=== PATIENT | female | born 2000 | race Caucasian/White ===

== ENCOUNTER 2020-12-04 09:13 | Emergency (ER) | payer MEDICAID, SELFPAY ==
--- NOTE | ~2020-12-04 | XR_ITS ---
EXAMINATION: XR chest 1V portable DATE: 12/04/2020 09:47 INDICATION: Cough. Nausea and vomiting. TECHNIQUE: A single frontal view of the chest was obtained. COMPARISON: Chest 2 views 12/19/2010, CT abdomen and pelvis 07/17/2018 FINDINGS: The chest demonstrates clear lungs without pneumonia, pleural effusion, or pneumothorax. Th e heart size is normal. IMPRESSION: 1. No acute cardiopulmonary disease. Reviewed, dictated and finalized at location A.
[2020-12-04 09:19] VITALS: BP 132/76; PULSE 100; RESP 18; TEMP 36.8; O2SAT 98
[2020-12-04] MEDS: SODIUM CHLORIDE 0.9% IV 1,000 ML 999 ML IV CONT (09:59)
--- NOTE | 2020-12-04 10:50 | ED.FEVER ---
HPI - Fever General Chief Complaint: Fever Stated Complaint: 5 mos preg - vomiting Time Seen by Provider: 12/04/20 09:16 History of Present Illness HPI Narrative: Patient is a 20-year-old female who is 5 months along in her . G1, P0. She presents ER with fever of 100.8 ?F last night. Associated with 2 to 3 days of sinus congestion with sore throat and productive cough. No exertional dyspnea or chest pain. No known sick or Covid positive contacts. Denies any urinary symptoms or leakage of fluid/vaginal bleeding. Patient her mother just want to be safe given that she is . Patient does experience posttussive emesis but she is not having nausea or vomiting or difficulty eating. Related Data Allergies Allergy/AdvReac Type Severity Reaction Status Date / Time No Known Allergies Allergy Unverified 12/04/20 09:25 Review of Systems Review of Systems: All systems reviewed & are unremarkable except as noted in HPI and below Constitutional: Constitutional: Denies chills, Denies fatigue and Reports fever(s) ENT: Reports nasal congestion and Reports sore throat Cardiovascular: Cardiovascular: Denies chest pain, Denies rapid heart rate and Denies radiating jaw, neck or arm pain Respiratory: Respiratory: Reports cough, Denies dyspnea and Denies wheezing Gastrointestinal: Gastrointestinal: Denies abdominal pain, Denies nausea and Denies vomiting Genitourinary: Genitourinary: Denies abnormal vaginal bleeding, Denies nocturia, Denies dysuria and Denies vaginal discharge PMFSH Past Medical History Medical History (Updated 12/04/20 @ 10:55 by Ward Faye MD) Healthy female adult Surgical History Surgical History (Updated 12/04/20 @ 10:53 by Ward Faye MD) No history of previous surgery Social History Social History (Updated 12/04/20 @ 10:53 by Ward Faye MD) Tobacco type: e-cigarettes/vaping Exam Narrative: Exam Narrative: GENERAL: Well-appearing, well-nourished, and in no acute distress. HEAD: Normocephalic, atraumatic. ENT: Mucous membranes moist. Normal-appearing posterior oropharynx with tonsillar hypertrophy/exudate, uvula midline and nonedematous. CHEST: Clear to auscultation. No respiratory distress. HEART: Regular rate and rhythm. Normal peripheral pulses. ABDOMEN: Soft, nontender, nondistended. NEURO: Alert and oriented x3. PSYCH: Normal mood and affect. Course [employer] Physician Supervision Patient hydrated. No evidence of pneumonia on chest x-ray. Patient swabbed for Covid and educated on isolation measures. Patient will be started on Mucinex DM to help break up her congestion. Vital Signs Vital signs: Vital Signs Temperature 98.2 F 12/04/20 09:19 Pulse Rate 100 12/04/20 09:19 Respiratory Rate 18 12/04/20 09:19 Blood Pressure 132/76 12/04/20 09:19 Pulse Oximetry 98 12/04/20 09:19 Temperature 98.2 F 12/04/20 09:19 Pulse Rate 100 12/04/20 09:19 Respiratory Rate 18 12/04/20 09:19 Blood Pressure 132/76 12/04/20 09:19 Pulse Oximetry 98 12/04/20 09:19 MDM - Fever Lab Data Labs: Lab Results 12/04/20 Range/Units 10:35 SARS-CoV-2 RNA (RT-PCR) Pending Discharge Plan Discharge Clinical Impression: Acute viral syndrome, Person under investigation for COVID-19 Patient Disposition: Home, Self-Care Condition: Stable Instructions: Viral Syndrome (ED) Additional Instructions: Your swab for Covid. You must self isolate until you receive a negative test, or if you are positive cleared by the health department. Take Mucinex DM to help with breaking up your mucus. Take Tylenol for fever. Make sure to stay hydrated. Prescriptions: New dextromethorphan-guaifenesin [Mucinex DM] 60-1,200 mg tablet extended release 12 hr 1 tablet PO Q12H Qty: 14 RF: 0 Follow-up/Referrals: Marc,Sayra Galicia MD [Primary Care Provider] - 1 Week
[2020-12-04 11:10] VITALS: BP 105/69; PULSE 95; RESP 17; O2SAT 100
[2020-12-04 17:02] LABS: SARS-CoV-2 RNA PCR Positive
== END 2020-12-04 11:10 | disposition home or self-care (01) ==
PROVIDERS: Emergency Provider Emergency Medicine; PCP Family Medicine
DX: O98.512 Other viral diseases complicating pregnancy, second trimester (principal); U07.1 COVID-19; Z3A.00 Weeks of gestation of pregnancy not specified; O99.332 Smoking (tobacco) complicating pregnancy, second trimester; F17.290 Nicotine dependence, other tobacco product, uncomplicated
CPT/HCPCS: 71045; 99283; C9803; J7030; U0003; U0005

== ENCOUNTER 2021-04-14 13:52 | Outpatient (CLI) | payer OTHER, SELFPAY ==
[2021-04-14] VITALS (7 sets, daily range): BP systolic 131–154; BP diastolic 80–106; PULSE 73–106
[2021-04-14 14:36] LABS: Basophils Percent Auto 0.4 % (0.2-1.2); Eosinophils Absolute Auto 0.1 K/mm3 (0-0.3); Eosinophils Percent Auto 0.7 % (0-4.4); Hematocrit 38.2 % (37.0-47.0); Immature Granulocyte Absolute 0.12 K/mm3 (0.00-0.031); Immature Granulocyte Percent A 1.1 % (0-0.5); Lymphocytes Absolute Auto 1.49 K/mm3 (0.9-3.2); Lymphocytes Percent Auto 13.2 % (18.3-44.2); Mean Corpuscular HGB Conc 31.4 g/dl (32-36); Mean Corpuscular Volume 82.9 fl (80-100); Mean Platelet Volume 10.9 fl (7.4-10.4); Monocytes Absolute Auto 0.7 K/mm3 (0.1-0.6); Neutrophils Absolute Auto 8.9 K/mm3 (1.3-6.7); Neutrophils Percent Auto 78.6 % (45.5-73.1); Platelet Count Result 201 k/mm3 (150-375); Red Blood Count 4.61 M/mm3 (4.2-5.4); Red Cell Distribution Width 14.8 % (11.5-14.5); White Blood Count 11.3 K/mm3 (4.5-10.0)
[2021-04-14 14:38] LABS: Add Urine Microscopic? NO; Appearance Urine Clear (Clear); Bilirubin Urine Negative (Negative); Blood Urine Negative (Negative); Color Urine Colorless (Yellow); Glucose Urine UA Negative (Negative); Ketones Urine Negative (Negative); Leukocyte Esterase Ur Negative LEU/UL (NEGATIVE); Nitrate Urine Negative (Negative); Protein Urine Negative (Negative); Urobilinogen Urine Negative mg/dL (<2.0)
[2021-04-14 14:44] LABS: Alanine Aminotransferase 15 U/L (4-35); Albumin Level 3.8 g/dL (3.5-5.1); Alkaline Phosphatase 217 U/L (38-126); Anion Gap 8 mmol/L (8-16); Aspartate Amino Transferase 23 U/L (14-36); Bilirubin,Total 0.4 mg/dL (0.2-1.3); Blood Urea Nitrogen 4 mg/dL (7-17); Calcium 8.9 mg/dL (8.4-10.2); Carbon Dioxide 20 mmol/L (22-30); Chloride 106 mmol/L (98-107); Estimated Glomerular Filt Rate > 60; Glucose 73 mg/dL (65-110); Potassium 3.7 mmol/L (3.4-5.0); Sodium 134 mmol/L (137-145); Uric Acid 4.9 mg/dL (2.5-7.5)
[2021-04-14 14:47] LABS: Creatinine Urine 15.5 mg/dL; Total Protein Urine Random 14 mg/dL
[2021-04-14 15:22] LABS: Specific Grav Ur 1.002 (1.001-1.035)
== END 2021-04-14 15:50 | disposition home or self-care (01) ==
LOC: ANHOBOP 13:58 → ANHOBPP 13:59
PROVIDERS: Visit Provider Student in an Organized Health Care Education/Training Program
DX: O13.3 Gestational [pregnancy-induced] hypertension without significant proteinuria, third trimester (principal); Z3A.36 36 weeks gestation of pregnancy
CPT/HCPCS: 36415; 59025; 80053; 81003; 82570; 84156; 84550; 85025; 87086; 99199

== ENCOUNTER 2021-04-15 16:49 | Outpatient (CLI) | payer OTHER, SELFPAY ==
[2021-04-15 17:26] VITALS: BMI 31.1
[2021-04-15 17:39] LABS: Collection Time Urine 24 HOURS
[2021-04-15 17:48] LABS: Creatinine Urine 62.3 mg/dL; Patient Weight 192 Lbs; Total Protein Urine Random 11 mg/dL
[2021-04-15 18:01] LABS: Creatinine Clearance Urine 200.6 ml/min (75-125); Total Protein Urine 24 Hr 231 mg/24hr (28-141); Total Volume 24 Hour Urine 2100 ml
== END 2021-04-15 16:50 | disposition home or self-care (01) ==
LOC: ANHOBOP 16:51
PROVIDERS: Visit Provider Student in an Organized Health Care Education/Training Program
DX: O13.9 Gestational [pregnancy-induced] hypertension without significant proteinuria, unspecified trimester (principal); Z3A.00 Weeks of gestation of pregnancy not specified
CPT/HCPCS: 81050; 82575; 84156

== ENCOUNTER 2023-09-21 18:49 | Emergency (ER) | payer OTHER, SELFPAY ==
--- NOTE | 2023-09-21 19:02 | ED.URI ---
HPI - URI/Sore Throat General Chief Complaint: Upper Respiratory Infection Stated Complaint: flu like symptoms Time Seen by Provider: 09/21/23 19:15 Source: patient Mode of arrival: ambulatory Limitations: no limitations History of Present Illness HPI Narrative: Tori is a 22-year-old female patient presenting to the clinic today with complaints of flu-like symptoms. She reports she has had a fever, headache, body aches, chills, nasal congestion and a cough since yesterday. Fevers high as 102. Denies any chest pain or shortness of breath. MD elicited complaint: fever, cough, rhinorrhea, nasal congestion and other (Headache) Related Data Allergies Allergy/AdvReac Type Severity Reaction Status Date / Time No Known Allergies Allergy Unverified 09/21/23 19:05 Review of Systems Review of Systems: Pertinent positives per HPI. Patient denies any rash, visual changes, dizziness, shortness of breath, chest pain, palpitations, nausea, vomiting, diarrhea, constipation, abdominal pain, or any urinary issues. [facility] Past Medical History Medical History (Updated 09/21/23 @ 19:32 by Percy Delaney APRN) Healthy female adult Surgical History Surgical History (Updated 12/04/20 @ 10:53 by Ward Faye MD) No history of previous surgery Social History Social History (Updated 12/04/20 @ 10:53 by Ward Faye MD) Tobacco type: e-cigarettes/vaping Comments At the time of my signature, I reviewed and agree with the nursing past medical, surgical, social, and family history. There is no relevant family history pertinent to the patient complaint. Exam Narrative: General: Well-developed, well nourished, in no apparent distress Head: Normocephalic, atraumatic Eyes: Pupils equally round and reactive to light bilaterally, EOM intact, sclera and conjunctive clear, no discharge, lids normal Ears: TMs intact and congested, ear canals clear, no drainage, grossly hearing normal. Nose: Nares patent, clear nasal discharge, no inflammation, no sinus tenderness. Mouth: Oral pharynx red without lesions or masses, good dentition, MMM. Neck: Supple, trachea midline, no enlargement of anterior or posterior cervical nodes, no thyroid masses or goiter palpable. Cardio: Regular rate and rhythm, s1 and s2 normal, no murmur appreciated. Resp: Clear to auscultation bilaterally, no rhonchi, rales, wheezing or rubs Course Course Emergency Course: Portions of this record may have been created with voice recognition software. Level of Care: Express Care Visit Vital Signs Vital signs: Vital signs reviewed MDM - URI/Sore Throat MDM Narrative Medical decision making narrative: At the time of visit patient is resting comfortably on the exam table. Patient appears to be nontoxic. COVID testing was negative. Influenza test was positive for influenza A. Supportive measures were discussed with the patient and they voiced understanding discharge instructions and agrees to treatment plan. Return precautions reviewed Differential Diagnosis Differential diagnosis: Likely upper respiratory infection, otitis media, sinusitis, viral infection, bronchitis, influenza, pharyngitis and other (COVID) Discharge Plan Discharge Clinical Impression: Influenza A Patient Disposition: Home, Self-Care Condition: Stable Instructions: Antibiotic Form, Influenza (ED) Additional Instructions: COVID testing was negative. Influenza test was positive for influenza A. Take prescription medications only as prescribed-Tamiflu Increase fluids and stay well hydrated Tylenol/motrin for pain/fever Flonase and OTC antihistamines as directed Vicks vapor rub to open sinuses Sinus rinses for congestion Cepacol spray, cough drops, throat lozenges, warm tea with honey/lemon, gargle salt water to soothe throat BRAT diet for diarrhea Clear liquids x 24 hours then advance as tolerated for nausea/vomiting Go to the ED if y
[2023-09-21 19:04] VITALS: BP 127/80; PULSE 107; RESP 18; TEMP 37.3; O2SAT 100
== END 2023-09-21 19:44 | disposition home or self-care (01) ==
PROVIDERS: Emergency Provider Nurse Practitioner Family
DX: J10.1 Influenza due to other identified influenza virus with other respiratory manifestations (principal); Z20.822 Contact with and (suspected) exposure to COVID-19
CPT/HCPCS: 87426; 87804; 99213; C9803; G0463

== ENCOUNTER 2023-12-10 11:07 | Emergency (ER) | payer OTHER, SELFPAY ==
[2023-12-10 11:22] VITALS: BP 117/69; PULSE 91; RESP 16; TEMP 36.1; O2SAT 99
--- NOTE | 2023-12-10 12:08 | ED.EYEPROB ---
HPI - Eye Problem General Chief complaint: Eye Problems Stated complaint: right eye red,hurts,discharge Source: patient Mode of arrival: ambulatory Limitations: no limitations History of Present Illness HPI Narrative: 23-year-old female presented for complaint of right eye redness, irritation, and drainage. Onset 0430. Endorses mild blurry vision of the right eye, which she says is from drainage. denies photophobia, headache, dizziness. MD chief complaint: eye pain Related Data Allergies Allergy/AdvReac Type Severity Reaction Status Date / Time No Known Allergies Allergy Verified 12/10/23 11:19 Review of Systems Review of Systems: CONSTITUTIONAL: Denies body aches, fever, chills EYES:Endorses swelling, redness , drainage and pain to right eye; denies FB sensation, photophobia, visual changes ENT: Denies rhinorrhea, congestion, sore throat, or otalgia. GASTROINTESTINAL: Denies abdominal pain, nausea, vomiting, or diarrhea. SKIN: Denies rash, itching, or wounds. MUSCULOSKELETAL: Denies myalgia. NEUROLOGIC: Denies headache All systems reviewed & are unremarkable except as noted in HPI and below PMFSH Past Medical History Medical History Healthy female adult Surgical History Surgical History No history of previous surgery Social History Social History Tobacco type: e-cigarettes/vaping Comments At time of signature, I have reviewed and agree with nursing past medical, surgical, social and family history unless otherwise noted. Please see nursing chart for further information. There is no relevant family history pertinent to the presenting complaint Exam Narrative: GENERAL: Well-appearing HEAD: Normocephalic, atraumatic. EYES: right mild conjunctival injection, purulent drainage, mild upper eye lid swelling, not occluded. PERRLA, EOMI. Lid eversion shows no FB. ENT: Mucous membranes pink and moist. No rhinorrhea. TMs normal bilaterally. Throat normal. Uvula midline. CHEST: Clear to auscultation. HEART: Regular rate and rhythm. SKIN: Warm, dry, no rash. Normal skin turgor. NEURO: Alert and oriented x3 PSYCH: Normal affect. Course Course Emergency Course: Patient is aware of diagnosis, understands and agrees to treatment plan. Anticipatory guidance given. Patient agrees to follow-up as directed and is aware of reasons to seek care at the emergency department. Portions of this record may have been created with voice recognition software Level of Care: Express Care Visit Vital Signs Vital signs: Vital Signs Temperature 97.0 F L 12/10/23 11:22 Pulse Rate 91 12/10/23 11:22 Respiratory Rate 16 12/10/23 11:22 Blood Pressure 117/69 12/10/23 11:22 Pulse Oximetry 99 12/10/23 11:22 Oxygen Delivery Room Air 12/10/23 11:22 Temperature 97.0 F L 12/10/23 11:22 Pulse Rate 91 12/10/23 11:22 Respiratory Rate 16 12/10/23 11:22 Blood Pressure 117/69 12/10/23 11:22 Pulse Oximetry 99 12/10/23 11:22 Oxygen Delivery Room Air 12/10/23 11:22 MDM - Eye Problem MDM Narrative Medical decision making narrative: Discussed physical exam findings Consistent with right bacterial conjunctivitis. Advised supportive measures and signs/symptoms to go to the ER. Pt is appropriate for outpt treatment and f/u. Differential Diagnosis Differential diagnosis: Likely corneal abrasion, conjunctivitis, acute iritis and other Discharge Plan Discharge Clinical Impression: Bacterial conjunctivitis Patient Disposition: Home, Self-Care Condition: Stable Instructions: Antibiotic Form, Conjunctivitis (ED) Additional Instructions: Avoid touching or rubbing your eye. Use over the counter lubricating eye drops as needed for irritation Use a warm or cool washcloth on your eye for comfort Use
== END 2023-12-10 12:23 | disposition home or self-care (01) ==
PROVIDERS: Emergency Provider Nurse Practitioner Family
DX: H10.9 Unspecified conjunctivitis (principal); F17.290 Nicotine dependence, other tobacco product, uncomplicated
CPT/HCPCS: 99213; G0463